=== PATIENT | male | born 1995 | race Caucasian/White ===

== ENCOUNTER 2020-05-18 22:13 | Emergency (ER) | payer MEDICAID ==
[~2020-05-18] VITALS: Ht 172.7 cm; Wt 95.0 kg
[2020-05-18 22:26] VITALS: BP 128/100
[2020-05-18 23:03] LABS: MICROSCOPIC NOT IND
[2020-05-18] MEDS ORDERED: CIPROFLOXACIN 500 MG TABLET ONE (23:36)
[2020-05-18] MEDS ORDERED: metroNIDAZOLE 500 MG TABLET ONE (23:36)
[2020-05-18] MEDS ORDERED: HYDROcodone/APAP 5/325 TABLET ONE (23:37)
[2020-05-19] MEDS ORDERED: HYDROcodone/APAP 5/325 TABLET PO ONE
[2020-05-19] MEDS ORDERED: CIPROFLOXACIN 500 MG TABLET PO ONE
[2020-05-19] MEDS ORDERED: metroNIDAZOLE 500 MG TABLET PO ONE
== END 2020-05-18 23:45 | disposition home or self-care (01) ==
LOC: ED 23:36
DX: K51.90 Ulcerative colitis, unspecified, without complications (principal); R10.32 Left lower quadrant pain; R10.2 Pelvic and perineal pain; R05 Cough
CPT/HCPCS: 74176; 81003; 99284

== ENCOUNTER 2020-05-31 13:34 | Emergency (ER) | payer MEDICAID ==
[~2020-05-31] VITALS: Ht 172.7 cm; Wt 91.6 kg
[2020-05-31] MEDS ORDERED: AMIT10TA PO (14:40)
--- NOTE | 2020-05-31 14:41 | NUR ---
THE PT IS A 24M COMPLAINING OF RIGHT GROIN PAIN SINCE 11:00 THIS AM. HE WAS BROUGHT IN BY EMS AND PUT IN THE LOBBY. STATES HE WAS JUST SEEN AND DX WITH A "COLON INFECTION" AND COMPLETED A COURSE OF ANTIBIOTICS 2 DAYS AGO. PROVIDER AT BEDSIDE FOR EVAL AND POC. DENIES ANY D/C FROM PENIS OR RECENT HEAVY LIFTING. CALL LIGHT WITHIN REACH. NO FURTHER NEEDS.
[2020-05-31 14:45] VITALS: BP 126/83
[2020-05-31 15:14] LABS: BASOPHILS % (AUTO) 1 % (0-1); EOSINOPHILS % (AUTO) 7 % (1-7); LYMPHOCYTES % (AUTO) 44 % (22-44); MEAN CORPUSCULAR HEMOGLOBIN 30.1 pg (27.5-34.5); MEAN CORPUSCULAR HGB CONC 33.7 g/dL (33.2-36.2); MEAN PLATELET VOLUME 7.6 fL (7.4-10.4); MONOCYTES % (AUTO) 10 % (2-9); NEUTROPHILS % (AUTO) 38 % (42-75); PLATELET COUNT 278 x10^3/uL (130-400); RED BLOOD COUNT 5.13 x10^6/uL (4.38-5.82); RED CELL DISTRIBUTION WIDTH 15.4 % (9.4-14.8)
[2020-05-31 15:23] LABS: ALANINE AMINOTRANSFERASE 29 U/L (12-78); ALBUMIN 3.9 g/dL (3.4-5.0); ANION GAP 6 mmol/L (5-15); CALCIUM 9.1 mg/dL (8.5-10.1); CHLORIDE 107 mmol/L (98-107); CREATININE 0.84 mg/dL (0.7-1.3)
[2020-05-31 15:25] LABS: ALKALINE PHOSPHATASE 80 U/L (45-117); BILIRUBIN,TOTAL 0.5 mg/dL (0.2-1.0); TOTAL PROTEIN 7.1 g/dL (6.4-8.2)
[2020-05-31 16:14] LABS: MD SCAN
[2020-05-31 16:20] LABS: MICROSCOPIC NOT IND
== END 2020-05-31 16:59 | disposition home or self-care (01) ==
LOC: ED 16:30
DX: R10.2 Pelvic and perineal pain (principal)
CPT/HCPCS: 36415; 76857; 76870; 80053; 81003; 85025; 99285

== ENCOUNTER 2020-07-14 17:54 | Emergency (ER) | payer MEDICAID ==
[~2020-07-14] VITALS: Ht 172.7 cm; Wt 89.0 kg
[~2020-07-14 17:54] MED LIST: AMIT10TA PO
[2020-07-14 18:01] VITALS: BP 120/63
== END 2020-07-14 19:13 | disposition home or self-care (01) ==
LOC: ED 18:46
DX: K64.8 Other hemorrhoids (principal); K62.5 Hemorrhage of anus and rectum; F17.200 Nicotine dependence, unspecified, uncomplicated
CPT/HCPCS: 99283

== ENCOUNTER 2020-12-13 04:35 | Observation (INO) | payer MEDICAID ==
[~2020-12-13] VITALS: Ht 172.7 cm; Wt 83.5 kg
--- NOTE | 2020-12-13 04:55 | NUR ---
Patient LARAA from [facility] c/o SI after OD on Seroquel. Patient admits to taking approx (20) 50 mg Seroquel approx 45-60 min ago. Patient states, "I was trying to kill myself." Patient c/o gen abd pain. Denies N/V. Patient drowsy but easily arousable.
--- NOTE | 2020-12-13 05:07 | NUR ---
Room secured, belongings locked in cabinet, sitter outside.
[2020-12-13 06:10] LABS: BASOPHILS % (AUTO) 1 % (0-1); EOSINOPHILS % (AUTO) 3 % (1-7); LYMPHOCYTES % (AUTO) 31 % (22-44); MEAN CORPUSCULAR HEMOGLOBIN 30.3 pg (27.5-34.5); MEAN CORPUSCULAR HGB CONC 33.8 g/dL (33.2-36.2); MONOCYTES % (AUTO) 11 % (2-9); NEUTROPHILS % (AUTO) 54 % (42-75); PLATELET COUNT 317 x10^3/uL (130-400); RED BLOOD COUNT 4.96 x10^6/uL (4.38-5.82); RED CELL DISTRIBUTION WIDTH 13.8 % (9.4-14.8)
--- NOTE | 2020-12-13 06:14 | NUR ---
Patient sleeping in [place]. Respirations even and unlabored. Room secured, belongings locked in cabinet. Sitter outside.
[2020-12-13 06:23] LABS: ALBUMIN 3.3 g/dL (3.4-5.0); ANION GAP 5 mmol/L (5-15); CALCIUM 9.2 mg/dL (8.5-10.1); CHLORIDE 106 mmol/L (98-107)
[2020-12-13 06:28] LABS: ALANINE AMINOTRANSFERASE 21 U/L (12-78); ALKALINE PHOSPHATASE 90 U/L (45-117); BILIRUBIN,TOTAL 0.5 mg/dL (0.2-1.0); CREATININE 0.82 mg/dL (0.7-1.3); SALICYLATE LEVEL 2.9 mg/dL (2.8-20.0); TOTAL PROTEIN 7.4 g/dL (6.4-8.2)
--- NOTE | 2020-12-13 06:35 | NUR ---
Urine collected and sent to lab.
--- NOTE | 2020-12-13 07:01 | NUR ---
Report to [facility] Maria. Patient care transferred.
--- NOTE | 2020-12-13 07:02 | NUR ---
REPORT FROM JQ, ASSUME CARE OF PT AT THIS TIME. SITTER AT DOORWAY. AWAITING UDS RESULTS.
[2020-12-13 07:16] LABS: AMPHETAMINE SCREEN, URINE Negative (Negative); BARBITURATE SCREEN, URINE Negative (Negative); BENZODIAZEPINE SCREEN, URINE Negative (Negative); CANNABINOID SCREEN, URINE Positive (Negative); COCAINE SCREEN, URINE Negative (Negative); OPIATE SCREEN, URINE Negative (Negative)
[2020-12-13 07:17] LABS: METHADONE SCREEN, URINE Negative (Negative)
--- NOTE | 2020-12-13 08:06 | NUR ---
ALL RESULTS BACK, PT FOR RECHECK.
--- NOTE | 2020-12-13 08:17 | NUR ---
ERP IN TO REASSESS PT. PT REFUSES TO ANSWER TIME HE TOOK SEROQUEL. PER ERP, SIX HOUR OBS FROM TIME HE ARRIVED. WILL RECHECK AT 1100 FOR MEDICAL CLEARANCE.
--- NOTE | 2020-12-13 09:18 | NUR ---
PT SLEEPING, NAD, SITTER AT DOORWAY. CONTINUE OBSERVATION.
--- NOTE | 2020-12-13 10:16 | NUR ---
PT SLEEPING, NAD, SITTER AT DOORWAY.
--- NOTE | 2020-12-13 10:52 | NUR ---
[facility] EVALUATING FOR ADMIT
--- NOTE | 2020-12-13 11:08 | NUR ---
PT SLEEPING, VSS. PT MEDICALLY CLEARED, AWAITING PSYCH.
--- NOTE | 2020-12-13 11:47 | NUR ---
MEDICALLY CLEARED, [facility] NOTIFIED
--- NOTE | 2020-12-13 12:02 | NUR ---
[facility] CONSULTING WITH THEIR PROVIDER FOR ACCEPTANCE
--- NOTE | 2020-12-13 12:59 | NUR ---
[facility] ACCEPTS AND WILL HAVE ROOM FOR PT APROX 1600. COVID POC ORDERED.
--- NOTE | 2020-12-13 16:09 | NUR ---
Carlos Manuel garcia in [facility] - 12/13/20 at 1609 by DONNA pt al
--- NOTE | 2020-12-13 16:09 | NUR ---
PT CARE REPORT TO [facility]ERO GARCIA
[2020-12-13] MEDS ORDERED: BUSP15TA PO (16:17)
[2020-12-13] MEDS ORDERED: LEVO25TA4 PO ×2 (16:18→17:23)
[2020-12-13 16:19] VITALS: BP 116/74
[2020-12-13] MEDS ORDERED: HYDR-826 PO (16:19)
[2020-12-13] MEDS ORDERED: QUET50TA5 PO (17:23)
[2020-12-13] MEDS ORDERED: BUSP10TA PO (17:23)
[2020-12-13] MEDS ORDERED: LAMO100T5 PO (17:23)
[2020-12-13] MEDS ORDERED: AMIT25TA PO (17:23)
[2020-12-13] MEDS ORDERED: ESCI20TA8 PO (17:23)
== END 2020-12-13 16:01 ==
LOC: ED 13:00 → EDIP 13:45
PROVIDERS: ADMIT Emergency Medicine; ATTEND Emergency Medicine
DX: T43.592A Poisoning by other antipsychotics and neuroleptics, intentional self-harm, initial encounter (principal); Z20.822 Contact with and (suspected) exposure to COVID-19; F41.8 Other specified anxiety disorders; F20.9 Schizophrenia, unspecified
CPT/HCPCS: 99284; G0378; 36415; 80053; 80299; 80307; 80320; 80329; 85025; 87426; 93005; G0480

== ENCOUNTER 2020-12-13 14:21 | Inpatient (IN) | payer MEDICAID ==
[~2020-12-13] VITALS: Ht 167.6 cm; Wt 81.9 kg
[2020-12-13] MEDS ORDERED: ONDANSETRON ODT 4 MG PO PRN (15:00)
[2020-12-13] MEDS ORDERED: POLYETHYLENE GLYCOL 17 GM PACKET PO PRN (15:00)
[2020-12-13] MEDS ORDERED: ACETAMINOPHEN 325 MG TABLET PO PRN (15:00)
[2020-12-13] MEDS ORDERED: BISACODYL 10 MG SUPP PR PRN (15:00)
[2020-12-13] MEDS ORDERED: DOCUSATE 100 MG CAPSULE PO PRN (15:00)
[2020-12-13] MEDS ORDERED: BUSP15TA PO (16:17)
[2020-12-13] MEDS ORDERED: LEVO25TA4 PO ×2 (16:18→17:23)
[2020-12-13] MEDS ORDERED: HYDR-826 PO (16:19)
[2020-12-13 16:46] VITALS: BP 117/80
[2020-12-13] MEDS ORDERED: PLEASE ENTER HEIGHT AND WEIGHT MC SCH ×2 (17:00→17:30)
[2020-12-13] MEDS ORDERED: QUET50TA5 PO (17:23)
[2020-12-13] MEDS ORDERED: ESCI20TA8 PO (17:23)
[2020-12-13] MEDS ORDERED: AMIT25TA PO (17:23)
[2020-12-13] MEDS ORDERED: LAMO100T5 PO (17:23)
[2020-12-13] MEDS ORDERED: BUSP10TA PO (17:23)
[2020-12-13 20:14] VITALS: BP 105/67
[2020-12-14 06:30] LABS: CHOL/HDL RATIO 4.2; FREE T4 (FREE THYROXINE) 0.71 ng/dL (0.76-1.46); LDL/HDL RATIO 2.4 (0.5-3.0)
[2020-12-14 07:40] VITALS: BP 111/53
[2020-12-14 09:29] LABS: MICROSCOPIC INDICATED
[2020-12-14] MEDS ORDERED: AMITRIPTYLINE 25 MG TABLET PO PRN (11:30)
[2020-12-14] MEDS: BUSPIRONE 10 MG TABLET PO SCH ×2 (11:35→20:19)
[2020-12-14] MEDS: ESCITALOPRAM 10MG TABLET PO SCH (11:36)
[2020-12-14] MEDS: LAMOTRIGINE 100 MG TABLET PO SCH (11:36)
[2020-12-14 19:38] VITALS: BP 120/60
[2020-12-14] MEDS: QUETIAPINE 25MG TABLET PO SCH (20:19)
[2020-12-14] MEDS ORDERED: POTASSIUM CHLORIDE 20 MEQ TAB.ER.PRT PO ONE (21:00)
[2020-12-15] MEDS: LEVOTHYROXINE 25 MCG TABLET PO SCH (06:00)
[2020-12-15 07:29] VITALS: BP 110/67
[2020-12-15] MEDS: BUSPIRONE 10 MG TABLET PO SCH ×2 (09:47→20:15)
[2020-12-15] MEDS: ESCITALOPRAM 10MG TABLET PO SCH (09:47)
[2020-12-15] MEDS: LAMOTRIGINE 100 MG TABLET PO SCH (09:48)
[2020-12-15] MEDS: NICOTINE 14MG/24 HR PATCH.TD24 TD SCH (09:49)
[2020-12-15] MEDS: BACITRACIN ZINC OINT 500U/GM, 0.9 GM TP SCH ×2 (09:49→20:15)
[2020-12-15 19:21] VITALS: BP 116/72
[2020-12-15] MEDS: QUETIAPINE 25MG TABLET PO SCH (20:15)
[2020-12-16] MEDS: LEVOTHYROXINE 25 MCG TABLET PO SCH ×2 (05:49→09:58)
[2020-12-16 06:12] VITALS: BP 114/80
[2020-12-16] MEDS: ESCITALOPRAM 10MG TABLET PO SCH (09:58)
[2020-12-16] MEDS: NICOTINE 14MG/24 HR PATCH.TD24 TD SCH (09:59)
[2020-12-16] MEDS: BACITRACIN ZINC OINT 500U/GM, 0.9 GM TP SCH ×2 (09:59→20:35)
[2020-12-16] MEDS: BUSPIRONE 10 MG TABLET PO SCH ×2 (09:59→20:29)
[2020-12-16] MEDS: LAMOTRIGINE 100 MG TABLET PO SCH (09:59)
[2020-12-16 19:23] VITALS: BP 119/75
[2020-12-16] MEDS: QUETIAPINE 25MG TABLET PO SCH (20:29)
[2020-12-17 07:29] VITALS: BP 125/78
[2020-12-17] MEDS: LEVOTHYROXINE 25 MCG TABLET PO SCH (09:49)
[2020-12-17] MEDS: BUSPIRONE 10 MG TABLET PO SCH ×2 (09:49→20:51)
[2020-12-17] MEDS: NICOTINE 14MG/24 HR PATCH.TD24 TD SCH (09:49)
[2020-12-17] MEDS: ESCITALOPRAM 10MG TABLET PO SCH (09:50)
[2020-12-17] MEDS: LAMOTRIGINE 100 MG TABLET PO SCH (09:50)
[2020-12-17 20:19] VITALS: BP 138/78
[2020-12-17] MEDS: QUETIAPINE 25MG TABLET PO SCH (20:52)
[2020-12-17] MEDS ORDERED: BACITRACIN OINT 500U/GM, 15 GM TP SCH (21:00)
[2020-12-18 07:39] VITALS: BP 130/83
[2020-12-18] MEDS: LAMOTRIGINE 100 MG TABLET PO SCH (08:40)
[2020-12-18] MEDS: LEVOTHYROXINE 25 MCG TABLET PO SCH (08:40)
[2020-12-18] MEDS: ESCITALOPRAM 10MG TABLET PO SCH (08:40)
[2020-12-18] MEDS: BUSPIRONE 10 MG TABLET PO SCH (08:40)
[2020-12-18] MEDS: NICOTINE 14MG/24 HR PATCH.TD24 TD SCH (08:41)
[2020-12-18] MEDS ORDERED: NICO-486 TD (13:43)
== END 2020-12-18 14:32 | disposition home or self-care (01) | DRG 885 ==
LOC: 3E 16:45
PROVIDERS: ADMIT Psychiatry & Neurology Psychosomatic Medicine; ATTEND Psychiatry & Neurology Psychosomatic Medicine
DX: F25.1 Schizoaffective disorder, depressive type (principal); R45.851 Suicidal ideations; E03.9 Hypothyroidism, unspecified; F12.10 Cannabis abuse, uncomplicated; F41.1 Generalized anxiety disorder; Z79.899 Other long term (current) drug therapy; F17.210 Nicotine dependence, cigarettes, uncomplicated; Z71.6 Tobacco abuse counseling
CPT/HCPCS: 36415; 71045; 80053; 80061; 80299; 80307; 80320; 80329; 81001; 84439; 84443; 85025; 87086; 87426; 93005; 99285; G0378; G0480; Q0177